=== PATIENT | male | born 1955 | race Caucasian/White ===

== ENCOUNTER 2020-10-26 05:15 | Emergency (ER) | payer MEDICARE, OTHER ==
[2020-10-26] MEDS ORDERED: Sodium Chloride 0.9% 10 ML Syringe FLUSH PRN (05:25)
[2020-10-26] MEDS ORDERED: Metoprolol Tartrate 5 MG/5 ML SDV IVPUSH ONE ×3 (05:25→05:43)
--- NOTE | 2020-10-26 05:26 | EDM.PDOC ---
ED HPI GENERAL MEDICAL PROBLEM - General Chief Complaint: Cardiovascular Problem Stated Complaint: CHEST PAIN Time Seen by Provider: 10/26/20 05:25 Source of Information: Reports: Patient History Limitations: Reports: No Limitations - History of Present Illness INITIAL COMMENTS - FREE TEXT/NARRATIVE: presented to the ER with a sudden onset of palpitations. Reports he woke up from sleep due to palpitations and chest tightness. h/o afib in the past - on amlodipine but not BB or blood thinners - given that it was episodic and transient. He reports that he is usually in sinus. He is visiting from outside town. no dizziness. no SOB. no fever or chills. Onset: Sudden - Related Data Allergies Allergy/AdvReac Type Severity Reaction Status Date / Time No Known Allergies Allergy Verified 10/26/20 06:39 Home Meds: Home Meds Albuterol [Ventolin HFA] 90 mcg IH Q4HR PRN 10/26/20 [History] Aspirin [Ecotrin EC] 81 mg PO DAILY 10/26/20 [History] Fluticasone Propionate [Flonase] 50 mcg BERNADRA DAILY 10/26/20 [History] Fluticasone Propionate [Flovent HFA] 1 puff INH BID 10/26/20 [History] Fluticasone Propionate [Flovent HFA] 225 mcg PO BID 10/26/20 [History] Gabapentin [Neurontin] 600 mg PO TID 10/26/20 [History] Montelukast [Singulair] 10 mg PO DAILY 10/26/20 [History] Pantoprazole [ProTONIX] 40 mg PO BID 10/26/20 [History] Pravastatin Sodium 20 mg PO DAILY 10/26/20 [History] Tamsulosin [Tamsulosin 24 Hr] 0.4 mg PO DAILY 10/26/20 [History] amLODIPine [Norvasc] 5 mg PO DAILY 10/26/20 [History] lisinopriL [Lisinopril] 40 mg PO DAILY 10/26/20 [History] ED ROS GENERAL - Review of Systems Review Of Systems: See Below Constitutional: Reports: No Symptoms HEENT: Reports: No Symptoms Respiratory: Reports: No Symptoms Cardiovascular: Reports: Palpitations Endocrine: Reports: No Symptoms GI/Abdominal: Reports: No Symptoms Musculoskeletal: Reports: No Symptoms Skin: Reports: No Symptoms Neurological: Reports: No Symptoms Psychiatric: Reports: No Symptoms ED EXAM, GENERAL - Physical Exam Exam: See Below Exam Limited By: No Limitations General Appearance: Alert, WD/WN, No Apparent Distress Eye Exam: Bilateral Eye: EOMI Head: Atraumatic Respiratory/Chest: No Respiratory Distress, Lungs Clear, Normal Breath Sounds Cardiovascular: Tachycardia, Irregularly Irregular GI/Abdominal: Normal Bowel Sounds, Soft, Non-Tender Extremities: Normal Inspection, Normal Range of Motion, Non-Tender Neurological: Alert, Oriented, Normal Cognition Skin Exam: Warm, Dry, Intact #1 Interpretation EKG Date: 10/26/20 Rhythm: A-Fib [place]: Normal P-Wave: Absent QRS: Normal ST-T: Normal QT: Normal Comparison: NA - No Prior EKG Course - Vital Signs Last Recorded V/S: Last Vital Signs Temp Pulse 75 10/26/20 11:10 Resp 16 10/26/20 10:18 BP 115/71 10/26/20 11:10 Pulse Ox 96 10/26/20 10:18 - Orders/Labs/Meds Orders: Active Orders 24 hr Category Date Time Status EKG Documentation Completion [RC] ASDIRECTED Care 10/26/20 05:25 Active Diltiazem [Cardizem] 100 mg Med 10/26/20 06:00 Active Sodium Chloride 0.9% [Normal Saline] 100 ml IV TITRATE Sodium Chloride 0.9% [Normal Saline] 1,000 ml Med 10/26/20 05:30 Active IV ASDIRECTED Sodium Chloride 0.9% [Saline Flush] Med 10/26/20 05:25 Active 10 ml FLUSH ASDIRECTED PRN Saline Lock Insert [OM.PC] Routine Oth 10/26/20 05:25 Ordered Medication Orders Sodium Chloride (Normal Saline) 1,000 mls @ 999 mls/hr IV ASDIRECTED JAKE Last Admin: 10/26/20 05:24 Dose: 999 mls/hr Documented by: LIV Diltiazem HCl 100 mg/ Sodium (Chloride) 100 mls @ 5 mls/hr IV TITRATE JAKE; Protocol Last Titration: 10/26/20 10:41 Dose: 10 mg/hr, 10 mls/hr Documented by: Titration: 10/26/20 09:08 Dose: 20 mg/hr, 20 mls/hr Documented by: Titration: 10/26/20 08:03 Dose: 15 mg/hr, 15 mls/hr Documented by: Titration: 10/26/20 06:30 Dose: 10 mg/hr, 10 mls/hr Documented by: Admin: 10/26/20 06:10 Dose: 5 mg/hr, 5 mls/hr Documented by: LIV Sodium Chloride (Sodium Chloride 0.9% 10 Ml Syringe) 10 ml FLUSH ASDIRECTED PRN PRN Reason: Keep Vein Open Labs: Laboratory Tests 10/26/20 10/26/20 10/26/20 Range/Units 05:20 05:20 09:00 WBC 7.7 (4.0-11.0) K/uL RBC 5.52 (4.50-6.50) M/uL Hgb 16.7 (13.0-18.0) g/dL Hct 48.0 (40.0-54.0) % MCV 87 (76-96) fL MCH 30.3 (27.0-32.0) pg MCHC 34.8 (31.0-35.0) g/dL RDW 12.8 (11.0-16.0) % Plt Count 172 (150-400) K/uL MPV 10.5 H (6.0-10.0) fL Sodium 141 (136-145) mmol/L Potassium 4.0 (3.5-5.1) mmol/L Chloride 105 (98-107) mmol/L Carbon Dioxide 23.5 (21.0-32.0) mmol/L Anion Gap 16.5 H (5.0-15.0) mmol/L BUN 20 (8-26) mg/dL Creatinine 1.24 (0.70-1.30) mg/dL Est Cr Clr Drug Dosing TNP Estimated GFR (MDRD) 59 L (>60) MLS/MIN BUN/Creatinine Ratio 16.1 (6-25) Glucose 147 H (74-100) mg/dL Calcium 8.8 (8.5-10.1) mg/dL Phosphorus 2.7 (2.5-4.9) mg/dL Magnesium 2.1 (1.8-2.4) mg/dL Troponin I < 0.017 < 0.017 (0.000-0.060) ng/mL Meds: Medications Generic Name Dose Route Start Last Admin Trade Name Freq PRN Reason Stop Dose Admin Sodium Chloride 1,000 mls @ 999 mls/hr 10/26/20 05:30 10/26/20 05:24 Normal Saline IV 999 mls/hr ASDIRECTED JAKE Administration Diltiazem HCl 100 mg/ Sodium 100 mls @ 5 mls/hr 10/26/20 06:00 10/26/20 10:41 Chloride IV 10 mg/hr TITRATE JAKE 10 mls/hr Titration Protocol 5 MG/HR Sodium Chloride 10 ml 10/26/20 05:25 Sodium Chloride 0.9% 10 Ml Syringe FLUSH ASDIRECTED PRN Keep Vein Open Discontinued Medications Generic Name Dose Route Start Last Admin Trade Name Freq PRN Reason Stop Dose Admin Apixaban 5 mg 10/26/20 10:05 10/26/20 10:26 Apixaban 5 Mg Tab PO 10/26/20 10:06 5 mg ONETIME ONE Administration Aspirin 324 mg 10/26/20 05:39 10/26/20 05:41 Aspirin 81 Mg Tab.Chew PO 10/26/20 05:40 324 mg ONETIME ONE Administration Diltiazem HCl 10 mg 10/26/20 05:34 10/26/20 05:46 Diltiazem 25 Mg/5 Ml Sdv IVPUSH 10/26/20 05:35 Not Given ONETIME ONE Diltiazem HCl 5 mg 10/26/20 08:00 10/26/20 08:01 Diltiazem 25 Mg/5 Ml Sdv IVPUSH 10/26/20 08:01 5 mg ONETIME ONE Administration Diltiazem HCl 240 mg 10/26/20 10:05 10/26/20 10:26 Diltiazem 120 Mg Cap.Cd PO 10/26/20 10:06 240 mg ONETIME ONE Administration Sodium Chloride 1,000 mls @ 999 mls/hr 10/26/20 07:09 10/26/20 07:12 Normal Saline IV 10/26/20 08:09 999 mls/hr .BOLUS ONE Administration Metoprolol Tartrate 5 mg 10/26/20 05:25 10/26/20 05:36 Metoprolol Tartrate 5 Mg/5 Ml Sdv IVPUSH 10/26/20 05:26 5 mg ONETIME ONE Administration Metoprolol Tartrate 5 mg 10/26/20 05:41 10/26/20 05:44 Metoprolol Tartrate 5 Mg/5 Ml Sdv IVPUSH 10/26/20 05:42 5 mg ONETIME ONE Administration Metoprolol Tartrate 5 mg 10/26/20 05:43 10/26/20 05:46 Metoprolol Tartrate 5 Mg/5 Ml Sdv IVPUSH 10/26/20 05:44 Not Given ONETIME ONE - Re-Assessments/Exams Free Text/Narrative Re-Assessment/Exam: was connected to a monitor EKG - afib w RVR labs - normal CBC, BMP and trop IV lopressor 5 mg x2 - HR down to 120 10/26/20 12:04 IV dilt drip was started - HR down to 80's, and good BP. PO diltiazem 240mg was given and IV drip was shut off - HR remained 70-80 was started on Eliquis as well. tolerated well - denies palpitations or CP. repeat trop still WNL Departure - Departure Time of Disposition: 12:06 Disposition: Home, Self-Care 01 Condition: Good Clinical Impression: Atrial fibrillation with RVR, Atypical chest pain Instructions: Atrial Fibrillation, [id number] Forms: ED Department Discharge Sepsis Event Note (ED) - Focused Exam Vital Signs: Vital Signs Pulse Pulse Resp BP BP Pulse Ox 10/26/20 11:10 75 115/71 10/26/20 10:40 77 92/71 10/26/20 10:26 88 102/61 10/26/20 10:18 88 16 102/61 96 10/26/20 09:57 107 H 111/78 10/26/20 08:40 106 H 10/26/20 08:35 111 H 132/81 10/26/20 08:18 106 H 124/87 10/26/20 08:14 107 H 16 120/85 96 10/26/20 07:46 110 H 136/81 10/26/20 07:20 115 H 128/93 H 10/26/20 06:49 120 H 12 120/88 95 10/26/20 06:48 113 H 16 120/88 96 10/26/20 06:43 112 H 16 119/83 95 10/26/20 06:30 119/83 10/26/20 06:15 111 H 136/85 10/26/20 05:53 121 H 17 125/72 95 10/26/20 05:44 145 H 118/80 10/26/20 05:40 118/80 10/26/20 05:36 130 H 134/107 H - Problem List & Annotations (1) Atrial fibrillation with RVR SNOMED Code(s): 181563943276144 Code(s): I48.91 - UNSPECIFIED ATRIAL FIBRILLATION Status: Acute Priority: Medium Current Visit: Yes (2) Atypical chest pain SNOMED Code(s): 388168198 Code(s): R07.89 - OTHER CHEST PAIN Status: Acute Priority: Low Current Visit: Yes - Problem List Review Problem List Initiated/Reviewed/Updated: Yes - My Orders Last 24 Hours: My Active Orders 10/26/20 05:25 EKG Documentation Completion [RC] ASDIRECTED Sodium Chloride 0.9% [Saline Flush] 10 ml FLUSH ASDIRECTED PRN Saline Lock Insert [OM.PC] Routine 10/26/20 05:30 Sodium Chloride 0.9% [Normal Saline] 1,000 ml IV ASDIRECTED 10/26/20 06:00 Diltiazem [Cardizem] 100 mg Sodium Chloride 0.9% [Normal Saline] 100 ml IV TITRATE - Assessment/Plan Last 24 Hours: My Active Orders 10/26/20 05:25 EKG Documentation Completion [RC] ASDIRECTED Sodium Chloride 0.9% [Saline Flush] 10 ml FLUSH ASDIRECTED PRN Saline Lock Insert [OM.PC] Routine 10/26/20 05:30 Sodium Chloride 0.9% [Normal Saline] 1,000 ml IV ASDIRECTED 10/26/20 06:00 Diltiazem [Cardizem] 100 mg Sodium Chloride 0.9% [Normal Saline] 100 ml IV TITRATE Plan: - start taking amiodarone as prescribed, as well as, blood thinner Eliquis. - recommend to follow up with your PCP in 1-2 weeks - increase fluids intake - return to the ER if symptoms got worse or any concerns
[2020-10-26] MEDS ORDERED: Sodium Chloride 0.9% 1,000 ML IV SCH (05:30)
[2020-10-26] MEDS ORDERED: Diltiazem 25 MG/5 ML SDV IVPUSH ONE ×2 (05:34→08:00)
[2020-10-26] MEDS ORDERED: Aspirin 81 MG Tab.Chew PO ONE (05:39)
[2020-10-26] MEDS ORDERED: Diltiazem 100 MG in Sodium Chloride 0.9% 100 ML IV SCH (06:00)
[2020-10-26] MEDS ORDERED: Sodium Chloride 0.9% 1,000 ML IV ONE (07:09)
[2020-10-26] MEDS ORDERED: Diltiazem 120 MG Cap.CD PO ONE (10:05)
[2020-10-26] MEDS ORDERED: Apixaban 5 MG Tab PO ONE (10:05)
[2020-10-26] MEDS ORDERED: Diltiazem IR 60 MG Tab PO ONE (12:25)
== END 2020-10-26 14:35 | disposition home or self-care (01) ==
LOC: LB.ED 05:15
DX: I48.91 Unspecified atrial fibrillation (principal); Z79.899 Other long term (current) drug therapy
CPT/HCPCS: 36415; 80048; 83735; 84100; 84484; 85027; 93005; 96365; 96366; 96375; 99285; A9270; J3490; J7030

== ENCOUNTER 2024-04-15 09:04 | Emergency (ER) | payer OTHER, MEDICARE ==
[2024-04-15] MEDS: Aspirin 81 MG Tab.Chew PO ONE (09:21)
[2024-04-15] MEDS: Diltiazem 50 MG/10 ML SDV IVPUSH ONE (09:25)
[2024-04-15] MEDS ORDERED: Sodium Chloride 0.9% 10 ML Syringe FLUSH PRN (09:29)
[2024-04-15 09:35] LABS: BASOPHILS ABSOLUTE AUTO 0.02 K/uL (0.02-0.10); BASOPHILS PERCENT AUTO 0.2 % (0.0-0.5); EOSINOPHILS ABSOLUTE AUTO 0.11 K/uL (0.04-0.40); EOSINOPHILS PERCENT AUTO 1.2 % (1.0-5.0); HEMATOCRIT 49.3 % (40.0-54.0); HEMOGLOBIN 17.1 g/dL (13.0-18.0); LYMPHOCYTES ABSOLUTE AUTO 1.24 K/uL (1.50-4.00); LYMPHOCYTES PERCENT AUTO 13.3 % (20.0-40.0); MEAN CORPUSCULAR HEMOGLOBIN 30.8 pg (27.0-32.0); MEAN CORPUSCULAR HGB CONC 34.7 g/dL (31.0-35.0); MEAN CORPUSCULAR VOLUME 89 fL (76-96); MEAN PLATELET VOLUME 9.6 fL (6.0-10.0); MONOCYTES ABSOLUTE AUTO 0.78 K/uL (0.20-0.80); MONOCYTES PERCENT AUTO 8.3 % (3.0-10.0); PLATELET COUNT,PLT 171 K/uL (150-400); RED BLOOD CELL COUNT 5.56 M/uL (4.50-6.50); RED CELL DISTRIBUTION WIDTH 12.5 % (11.0-16.0); WHITE BLOOD CELL COUNT,WBC 9.4 K/uL (4.0-11.0)
[2024-04-15] MEDS: Sodium Chloride 0.9% 1,000 ML IV SCH (09:49)
[2024-04-15 09:54] LABS: INR 1.2 (1.0-3.5)
[2024-04-15 10:22] LABS: BUN/CREATININE RATIO 10.1 (6-25); CALCIUM 9.4 mg/dL (8.5-10.1); CARBON DIOXIDE,CO2 27.2 mmol/L (21.0-32.0); CREATININE 1.59 mg/dL (0.70-1.30); EST CRCL DRUG DOSING (CG) 46.7 mL/min; POTASSIUM,K 4.2 mmol/L (3.5-5.1); TROPONIN I HIGH SENSITIVITY 9.8 pg/ml (<=60.4)
[2024-04-15] MEDS: Diltiazem 240 MG Cap.ER PO ONE (10:33)
== END 2024-04-15 11:27 | disposition home or self-care (01) ==
LOC: LB.ED 09:04
DX: I48.91 Unspecified atrial fibrillation (principal); I10 Essential (primary) hypertension; J45.909 Unspecified asthma, uncomplicated; E78.00 Pure hypercholesterolemia, unspecified; Z79.899 Other long term (current) drug therapy
CPT/HCPCS: 36415; 71045; 80048; 83880; 84484; 85025; 85610; 85730; 93005; 96361; 96374; 99285-25; A9270-GY; J3490; J7030